=== PATIENT | male | born 1970 | race Caucasian/White ===

== ENCOUNTER 2018-08-28 22:25 | Observation (INO) | payer BC ==
[2018-08-28] MEDS ORDERED: Sodium Chloride 0.9% 10 ML Syringe FLUSH PRN (23:00)
[2018-08-28] MEDS ORDERED: Lactated Ringers 1,000 ML IV ONE (23:00)
[2018-08-28] MEDS ORDERED: Ondansetron 4 MG/2 ML SDV IV ONE (23:15)
--- NOTE | 2018-08-28 23:15 | EDM.PDOC ---
ED HPI GENERAL MEDICAL PROBLEM - General Chief Complaint: General Stated Complaint: PASSED OUT ON FLOOR [id number] Time Seen by Provider: 08/28/18 23:00 Source of Information: Reports: Patient, Family, RN, RN Notes Reviewed History Limitations: Reports: No Limitations - History of Present Illness INITIAL COMMENTS - FREE TEXT/NARRATIVE: Pt to ER with with c/o passing out at home today. Pt's states the patient cut his finger yesterday (cut most of the end off per ). Saw Dr. Chow in the clinic today and finger was bandaged. 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 Got home tonight and went to bed. States he felt hot and "itchy". Got out of bed and went into the bathroom. states he looked disoriented. states he passed out onto the floor, defacated on the floor while unconscious. Upon arrival patient states he feels weak and nauseated. Patient denies chest pains, recent illness, fever, chills, N/V. States he was started on Augmentin today in the clinic. Has taken 1 dose of the medication today. Onset: Today, Sudden - Related Data Allergies Allergy/AdvReac Type Severity Reaction Status Date / Time No Known Allergies Allergy Verified 08/28/18 22:51 Home Meds: Home Meds Amoxicillin/Potassium Clav [Augmentin 500-125 Tablet] 1 tab PO BID 08/28/18 [ History] Past Medical History - Past Health History Medical/Surgical History: Denies Medical/Surgical History ED ROS GENERAL - Review of Systems Review Of Systems: ROS reveals no pertinent complaints other than HPI. ED EXAM, GENERAL - Physical Exam Exam: See Below Exam Limited By: No Limitations General Appearance: Alert, WD/WN, Mild Distress Eye Exam: Bilateral Eye: EOMI, Normal Inspection Ears: Normal External Exam, Hearing Grossly Normal Nose: Normal Inspection Throat/Mouth: Normal Inspection, Normal Voice, No Airway Compromise Head: Atraumatic, Normocephalic Neck: Normal Inspection, Supple, Non-Tender, Full Range of Motion Respiratory/Chest: No Respiratory Distress, Lungs Clear, Normal Breath Sounds, No Accessory Muscle Use, Chest Non-Tender Cardiovascular: Normal Peripheral Pulses, Regular Rate, Rhythm, No Edema, No Gallop, No JVD, No Murmur, No Rub Peripheral Pulses: 2+: Radial (L), Radial (R) GI/Abdominal: Normal Bowel Sounds, Soft, Non-Tender, No Organomegaly, No Distention, No Abnormal Bruit, No Mass (Male) Exam: Deferred Rectal (Males) Exam: Deferred Back Exam: Normal Inspection, Full Range of Motion, NT Extremities: Normal Inspection, Normal Range of Motion, Non-Tender, Normal Capillary Refill, No Pedal Edema Neurological: Alert, Oriented, CN II-XII Intact, Normal Cognition, Normal Gait, Normal Reflexes, No Motor/Sensory Deficits Psychiatric: Normal Mood, Flat Affect Skin Exam: Warm, Dry, Intact, No Rash, Erythema (arms, legs) Lymphatic: No Adenopathy Course - Vital Signs Last Recorded V/S: Last Vital Signs Temp 97.5 F 08/28/18 23:33 Pulse 74 08/28/18 23:33 Resp 18 08/28/18 23:33 BP 97/59 L 08/28/18 23:33 Pulse Ox 97 08/28/18 23:33 - Orders/Labs/Meds Orders: Active Orders 24 hr Category Date Time Status EKG Documentation Completion [RC] STAT Care 08/28/18 23:00 Active Peripheral IV Care [RC] . DIRECTED Care 08/28/18 23:01 Active CULTURE BLOOD [BC] Stat Lab 08/28/18 00:22 Received CULTURE BLOOD [BC] Stat Lab 08/28/18 23:41 Received DRUG SCREEN URINE BIORAD [URCHEM] Stat Lab 08/28/18 23:00 Ordered UA RFX EMILY AND CULT IF INDIC [URIN] Stat Lab 08/28/18 23:00 Ordered Sodium Chloride 0.9% [Normal Saline] 1,000 ml Med 08/29/18 00:24 Active IV .BOLUS Sodium Chloride 0.9% [Saline Flush] Med 08/28/18 23:00 Active 10 ml FLUSH ASDIRECTED PRN Blood Culture x2 Reflex Set [OM.PC] Stat Oth 08/28/18 23:44 Ordered Peripheral IV Insertion Adult [OM.PC] Stat Oth 08/28/18 23:00 Ordered Medication Orders Sodium Chloride (Normal Saline) 1,000 mls @ 999 mls/hr IV .BOLUS ONE Stop: 08/29/18 01:24 Last Admin: 08/29/18 00:25 Dose: 999 mls/hr Sodium Chloride (Saline Flush) 10 ml FLUSH ASDIRECTED PRN PRN Reason: Keep Vein Open Last Admin: 08/28/18 23:46 Dose: 10 ml Labs: Laboratory Tests 08/28/18 08/28/18 08/28/18 Range/Units 23:12 23:12 23:44 WBC 16.8 H (5.0-10.0) 10^3/uL RBC 5.49 (4.6-6.2) 10^6/uL Hgb 17.1 (14.0-18.0) g/dL Hct 47.8 (40.0-54.0) % MCV 87.1 (80-100) fL MCH 31.1 (27.0-34.0) pg MCHC 35.8 H (33.0-35.0) g/dL Plt Count 271 (150-450) 10^3/uL Neut % (Auto) 65.6 (42.2-75.2) % Lymph % (Auto) 25.9 (20.5-50.1) % [place] % (Auto) 6.0 (2-8) % Eos % (Auto) 2.3 (1.0-3.0) % Baso % (Auto) 0.2 (0.0-1.0) % Sodium 136 (135-145) mmol/L Potassium 3.1 L (3.6-5.0) mmol/L Chloride 99 L (101-111) mmol/L Carbon Dioxide 18.0 L (21.0-31.0) mmol/L Anion Gap 22.1 BUN 15 (7-18) mg/dL Creatinine 1.4 H (0.6-1.3) mg/dL Est Cr Clr Drug Dosing 69.29 mL/min Estimated GFR (MDRD) 54 BUN/Creatinine Ratio 10.71 Glucose 121 H (74-105) mg/dL Lactic Acid 3.1 H (0.5-2.2) mmol/L Calcium 9.2 (8.4-10.2) mg/dl Total Bilirubin 0.7 (0.2-1.0) mg/dL AST 27 (10-42) IU/L ALT 27 (10-60) IU/L Alkaline Phosphatase 63 (42-121) IU/L Troponin I < 0.02 (0.00-0.02) ng/ml Total Protein 6.8 (6.7-8.2) g/dl Albumin 4.2 (3.2-5.5) g/dl Globulin 2.6 Albumin/Globulin Ratio 1.62 Ethyl Alcohol 177 mg/dL Meds: Medications Generic Name Dose Route Start Last Admin Trade Name Freq PRN Reason Stop Dose Admin Sodium Chloride 1,000 mls @ 999 mls/hr 08/29/18 00:24 08/29/18 00:25 Normal Saline IV 08/29/18 01:24 999 mls/hr .BOLUS ONE Administration Sodium Chloride 10 ml 08/28/18 23:00 08/28/18 23:46 Saline Flush FLUSH 10 ml ASDIRECTED PRN Administration Keep Vein Open Discontinued Medications Generic Name Dose Route Start Last Admin Trade Name Freq PRN Reason Stop Dose Admin Lactated Ringer's 1,000 mls @ 999 mls/hr 08/28/18 23:00 08/28/18 23:23 Ringers, Lactated IV 08/29/18 00:00 999 mls/hr .BOLUS ONE Administration Ondansetron HCl 4 mg 08/28/18 23:15 08/28/18 23:23 Zofran IV 08/28/18 23:16 4 mg ONETIME ONE Administration - Radiology Interpretation Free Text/Narrative:: Chest xray: FINDINGS: Lungs: Unremarkable. No consolidation. Pleural space: Unremarkable. No pleural effusion. No pneumothorax. Heart/Mediastinum: Unremarkable. No cardiomegaly. Bones/joints: Unremarkable. IMPRESSION: No acute findings. Thank you for allowing us to participate in the care of your patient. Dictated and Authenticated by: Vasu Gan MD 08/28/2018 11:36 PM Central Time ([place] & [place]) See rad report - Re-Assessments/Exams Free Text/Narrative Re-Assessment/Exam: 08/29/18 01:15 Discussed patient case with Dr. Pantoja who agreed to accept the patient for observation. Departure - Departure Time of Disposition: 01:16 Disposition: Refer to Observation Condition: Fair Clinical Impression: Hypokalemia, Elevated lactic acid level Episode of syncope Qualifiers: Syncope type: unspecified Qualified Code(s): R55 - Syncope and collapse Leukocytosis Qualifiers: Leukocytosis type: unspecified Qualified Code(s): D72.829 - Elevated white blood cell count, unspecified - Discharge Information *PRESCRIPTION DRUG MONITORING PROGRAM REVIEWED*: No *COPY OF PRESCRIPTION DRUG MONITORING REPORT IN PATIENT ALEXA: No - My Orders Last 24 Hours: My Active Orders 08/28/18 00:22 CULTURE BLOOD [BC] Stat 08/28/18 23:00 EKG Documentation Completion [RC] STAT DRUG SCREEN URINE BIORAD [URCHEM] Stat UA RFX EMILY AND CULT IF INDIC [URIN] Stat Sodium Chloride 0.9% [Saline Flush] 10 ml FLUSH ASDIRECTED PRN Peripheral IV Insertion Adult [OM.PC] Stat 08/28/18 23:01 Peripheral IV Care [RC] . DIRECTED 08/28/18 23:41 CULTURE BLOOD [BC] Stat 08/28/18 23:44 Blood Culture x2 Reflex Set [OM.PC] Stat 08/29/18 00:24 Sodium Chloride 0.9% [Normal Saline] 1,000 ml IV .BOLUS - Assessment/Plan Last 24 Hours: My Active Orders 08/28/18 00:22 CULTURE BLOOD [BC] Stat 08/28/18 23:00 EKG Documentation Completion [RC] STAT DRUG SCREEN URINE BIORAD [URCHEM] Stat UA RFX EMILY AND CULT IF INDIC [URIN] Stat Sodium Chloride 0.9% [Saline Flush] 10 ml FLUSH ASDIRECTED PRN Peripheral IV Insertion Adult [OM.PC] Stat 08/28/18 23:01 Peripheral IV Care [RC] . DIRECTED 08/28/18 23:41 CULTURE BLOOD [BC] Stat 08/28/18 23:44 Blood Culture x2 Reflex Set [OM.PC] Stat 08/29/18 00:24 Sodium Chloride 0.9% [Normal Saline] 1,000 ml IV .BOLUS
[2018-08-28 23:38] LABS: ANION GAP 22.1; CHLORIDE,CL 99 mmol/L (101-111); SODIUM,NA 136 mmol/L (135-145)
[2018-08-29] MEDS ORDERED: Sodium Chloride 0.9% 1,000 ML IV ONE (00:24)
[2018-08-29] MEDS ORDERED: Morphine 2 MG/ML Syringe IVPUSH PRN (01:28)
[2018-08-29] MEDS ORDERED: Acetaminophen 325 MG Tab PO PRN (01:29)
[2018-08-29] MEDS ORDERED: LORazepam 1 MG Tab PO PRN (01:31)
[2018-08-29] MEDS: Sodium Chloride 0.9% 1,000 ML IV SCH ×3 (01:52→16:51)
[2018-08-29] MEDS: ceFAZolin 2 GM in Premix Bag 1 BAG IV SCH ×3 (05:45→21:39)
[2018-08-29] MEDS ORDERED: Ondansetron 4 MG/2 ML SDV IV PRN (06:18)
[2018-08-29] MEDS: Enoxaparin 40 MG/0.4 ML Syringe SUBCUT SCH (08:33)
[2018-08-29] MEDS ORDERED: diphenhydrAMINE 12.5 MG/5 ML Liquid 5 ML UD Cup PO PRN (09:43)
[2018-08-29] MEDS ORDERED: diphenhydrAMINE 25 MG Tab PO PRN (10:38)
--- NOTE | 2018-08-29 10:48 | PCM.HP ---
H&P History of Present Illness - General Date of Service: 08/29/18 Admit Problem/Dx: Admission Diagnosis/Problem Admission Diagnosis/Problem Syncope and collapse Source of Information: Patient - History of Present Illness Initial Comments - Free Text/Narative: The patient is a 48-year-old man with medical history of alcohol use disorder. He is also a tobacco smoker. The patient got up to go to the bathroom felt woozy and passed out. His significant other weakness the incident. He was out a few seconds but subsequently responded to calls. Patient was a prescription brought to the emergency room. Was found to have elevated serum lactate and high white cell count. Was hypotensive. Patient denied having nausea vomiting initially. Subsequently he started vomiting in the emergency room. Has vomited multiple times now. Denies having abdominal pain. Denies headache or blurry vision. Denies dysuria frequency or micturition. Has not had any documented fever. Of note is that the patient recently sustained a Studies left middle finger. Was seen in the clinic and started on Augmentin. With that medication patient began to have itching. Did not have any documented fever. - Related Data Allergies/Adverse Reactions: Allergies Allergy/AdvReac Type Severity Reaction Status Date / Time No Known Allergies Allergy Verified 08/28/18 22:51 Home Medications: Home Meds Amoxicillin/Potassium Clav [Augmentin 500-125 Tablet] 1 tab PO BID 08/28/18 [ History] Past Medical History - Past Health History Medical/Surgical History: Denies Medical/Surgical History Cardiovascular History: Reports: Syncope Musculoskeletal History: Reports: Back Pain, Chronic Neurological History: Reports: Brain Injury, Migraines Other Neuro History: head injury and migraines at 6years old Psychiatric History: Reports: Addiction, Anxiety Other Psychiatric History: has taken lexapro in past Immunologic History: Reports: None Oncologic (Cancer) History: Reports: None Dermatologic History: Reports: None - Infectious Disease History Infectious Disease History: Reports: Chicken Pox - Past Surgical History Head Surgeries/Procedures: Reports: None Social & Family History - Family History Family Medical History: Noncontributory - Tobacco Use Smoking Status *Q: Current Every Day Smoker Years of Tobacco use: 40 Packs/Tins Daily: 1 Used Tobacco, but Quit: No Second Hand Smoke Exposure: Yes - Caffeine Use Caffeine Use: Reports: Coffee, Soda - Alcohol Use Days Per Week of Alcohol Use: 4 Number of Drinks Per Day: 7 Total Drinks Per Week: 28 - Recreational Drug Use Recreational Drug Use: No H&P Review of Systems - Review of Systems: Review Of Systems: See Below General: Reports: Malaise HEENT: Reports: No Symptoms Pulmonary: Reports: No Symptoms Cardiovascular: Reports: No Symptoms Gastrointestinal: Reports: Nausea, Vomiting Genitourinary: Reports: No Symptoms Musculoskeletal: Reports: No Symptoms Skin: Reports: No Symptoms Exam - Exam Exam: See Below - Vital Signs Vital Signs: Last Vital Signs Temp 37.7 C 08/29/18 07:50 Pulse 97 08/29/18 07:50 Resp 20 08/29/18 07:50 BP 114/67 08/29/18 07:50 Pulse Ox 99 08/29/18 07:50 Weight: 90.083 kg - Exam General: Alert, Oriented, 4 HEENT: PERRLA, Hearing Intact, Mucosa Moist & [place], Nares Patent, Normal Nasal Septum, Posterior Pharynx Clear, Conjunctiva Clear, EOMI, EACs Clear, TMs Clear Neck: Supple, Trachea Midline, 2 Lungs: Clear to Auscultation, Normal Respiratory Effort Cardiovascular: Regular Rate, Regular Rhythm GI/Abdominal Exam: Normal Bowel Sounds, Soft, Non-Tender, No Organomegaly, No Distention, No Abnormal Bruit, No Mass, Pelvis Stable Extremities: Normal Inspection, Normal Range of Motion, Non-Tender, No Pedal Edema, Normal Capillary Refill - Patient Data Lab Results Last 24 hrs: Laboratory Results - last 24 hr 08/28/18 08/28/18 08/28/18 Range/Units 23:12 23:12 23:44 WBC 16.8 H (5.0-10.0) 10^3/uL RBC 5.49 (4.6-6.2) 10^6/uL Hgb 17.1 (14.0-18.0) g/dL Hct 47.8 (40.0-54.0) % MCV 87.1 (80-100) fL MCH 31.1 (27.0-34.0) pg MCHC 35.8 H (33.0-35.0) g/dL Plt Count 271 (150-450) 10^3/uL Neut % (Auto) 65.6 (42.2-75.2) % Lymph % (Auto) 25.9 (20.5-50.1) % [place] % (Auto) 6.0 (2-8) % Eos % (Auto) 2.3 (1.0-3.0) % Baso % (Auto) 0.2 (0.0-1.0) % Sodium 136 (135-145) mmol/L Potassium 3.1 L (3.6-5.0) mmol/L Chloride 99 L (101-111) mmol/L Carbon Dioxide 18.0 L (21.0-31.0) mmol/L Anion Gap 22.1 BUN 15 (7-18) mg/dL Creatinine 1.4 H (0.6-1.3) mg/dL Est Cr Clr Drug Dosing 69.29 mL/min Estimated GFR (MDRD) 54 BUN/Creatinine Ratio 10.71 Glucose 121 H (74-105) mg/dL Lactic Acid 3.1 H (0.5-2.2) mmol/L Calcium 9.2 (8.4-10.2) mg/dl Total Bilirubin 0.7 (0.2-1.0) mg/dL AST 27 (10-42) IU/L ALT 27 (10-60) IU/L Alkaline Phosphatase 63 (42-121) IU/L Troponin I < 0.02 (0.00-0.02) ng/ml Total Protein 6.8 (6.7-8.2) g/dl Albumin 4.2 (3.2-5.5) g/dl Globulin 2.6 Albumin/Globulin Ratio 1.62 Urine Color (YELLOW) Urine Appearance (CLEAR) Urine pH (5.0-9.0) Ur Specific [place] (1.005-1.030) Urine Protein (NEGATIVE) Urine Glucose (UA) (NEGATIVE) Urine Ketones (NEGATIVE) Urine Occult Blood (NEGATIVE) Urine Nitrite (NEGATIVE) Urine Bilirubin (NEGATIVE) Urine Urobilinogen (0.2-1.0) mg/dL Ur Leukocyte Esterase (NEGATIVE) Urine RBC /HPF Urine WBC (0-5/HPF) /HPF Ur Epithelial Cells /HPF Urine Bacteria (0-FEW/HPF) /HPF Urine Opiates Screen (NEGATIVE) Ur Oxycodone Screen (NEGATIVE) Urine Methadone Screen (NEGATIVE) Ur Barbiturates Screen (NEGATIVE) U Tricyclic Antidepress (NEGATIVE) Ur Phencyclidine Scrn (NEGATIVE) Ur Amphetamine Screen (NEGATIVE) U Methamphetamines Scrn (NEGATIVE) Urine MDMA Screen (NEGATIVE) U Benzodiazepines Scrn (NEGATIVE) Urine Cocaine Screen (NEGATIVE) U Marijuana (THC) Screen (NEGATIVE) Ethyl Alcohol 177 mg/dL 08/29/18 08/29/18 08/29/18 Range/Units 03:25 03:25 04:38 WBC (5.0-10.0) 10^3/uL RBC (4.6-6.2) 10^6/uL Hgb (14.0-18.0) g/dL Hct (40.0-54.0) % MCV (80-100) fL MCH (27.0-34.0) pg MCHC (33.0-35.0) g/dL Plt Count (150-450) 10^3/uL Neut % (Auto) (42.2-75.2) % Lymph % (Auto) (20.5-50.1) % [place] % (Auto) (2-8) % Eos % (Auto) (1.0-3.0) % Baso % (Auto) (0.0-1.0) % Sodium (135-145) mmol/L Potassium (3.6-5.0) mmol/L Chloride (101-111) mmol/L Carbon Dioxide (21.0-31.0) mmol/L Anion Gap BUN (7-18) mg/dL Creatinine (0.6-1.3) mg/dL Est Cr Clr Drug Dosing mL/min Estimated GFR (MDRD) BUN/Creatinine Ratio Glucose (74-105) mg/dL Lactic Acid 2.3 H (0.5-2.2) mmol/L Calcium (8.4-10.2) mg/dl Total Bilirubin (0.2-1.0) mg/dL AST (10-42) IU/L ALT (10-60) IU/L Alkaline Phosphatase (42-121) IU/L Troponin I (0.00-0.02) ng/ml Total Protein (6.7-8.2) g/dl Albumin (3.2-5.5) g/dl Globulin Albumin/Globulin Ratio Urine Color Yellow (YELLOW) Urine Appearance Clear (CLEAR) Urine pH 5.0 (5.0-9.0) Ur Specific [place] 1.025 (1.005-1.030) Urine Protein Trace H (NEGATIVE) Urine Glucose (UA) Negative (NEGATIVE) Urine Ketones Trace H (NEGATIVE) Urine Occult Blood Trace-intact H (NEGATIVE) Urine Nitrite Negative (NEGATIVE) Urine Bilirubin Negative (NEGATIVE) Urine Urobilinogen 0.2 (0.2-1.0) mg/dL Ur Leukocyte Esterase Negative (NEGATIVE) Urine RBC 0-5 /HPF Urine WBC 0-5 (0-5/HPF) /HPF Ur Epithelial Cells Few /HPF Urine Bacteria Few (0-FEW/HPF) /HPF Urine Opiates Screen Negative (NEGATIVE) Ur Oxycodone Screen Negative (NEGATIVE) Urine Methadone Screen Negative (NEGATIVE) Ur Barbiturates Screen Negative (NEGATIVE) U Tricyclic Antidepress Negative (NEGATIVE) Ur Phencyclidine Scrn Negative (NEGATIVE) Ur Amphetamine Screen Negative (NEGATIVE) U Methamphetamines Scrn Negative (NEGATIVE) Urine MDMA Screen Negative (NEGATIVE) U Benzodiazepines Scrn Negative (NEGATIVE) Urine Cocaine Screen Negative (NEGATIVE) U Marijuana (THC) Screen Negative (NEGATIVE) Ethyl Alcohol mg/dL 08/29/18 Range/Units 04:38 WBC (5.0-10.0) 10^3/uL RBC (4.6-6.2) 10^6/uL Hgb (14.0-18.0) g/dL Hct (40.0-54.0) % MCV (80-100) fL MCH (27.0-34.0) pg MCHC (33.0-35.0) g/dL Plt Count (150-450) 10^3/uL Neut % (Auto) (42.2-75.2) % Lymph % (Auto) (20.5-50.1) % [place] % (Auto) (2-8) % Eos % (Auto) (1.0-3.0) % Baso % (Auto) (0.0-1.0) % Sodium (135-145) mmol/L Potassium (3.6-5.0) mmol/L Chloride (101-111) mmol/L Carbon Dioxide (21.0-31.0) mmol/L Anion Gap BUN (7-18) mg/dL Creatinine (0.6-1.3) mg/dL Est Cr Clr Drug Dosing mL/min Estimated GFR (MDRD) BUN/Creatinine Ratio Glucose (74-105) mg/dL Lactic Acid (0.5-2.2) mmol/L Calcium (8.4-10.2) mg/dl Total Bilirubin (0.2-1.0) mg/dL AST (10-42) IU/L ALT (10-60) IU/L Alkaline Phosphatase (42-121) IU/L Troponin I < 0.02 (0.00-0.02) ng/ml Total Protein (6.7-8.2) g/dl Albumin (3.2-5.5) g/dl Globulin Albumin/Globulin Ratio Urine Color (YELLOW) Urine Appearance (CLEAR) Urine pH (5.0-9.0) Ur Specific [place] (1.005-1.030) Urine Protein (NEGATIVE) Urine Glucose (UA) (NEGATIVE) Urine Ketones (NEGATIVE) Urine Occult Blood (NEGATIVE) Urine Nitrite (NEGATIVE) Urine Bilirubin (NEGATIVE) Urine Urobilinogen (0.2-1.0) mg/dL Ur Leukocyte Esterase (NEGATIVE) Urine RBC /HPF Urine WBC (0-5/HPF) /HPF Ur Epithelial Cells /HPF Urine Bacteria (0-FEW/HPF) /HPF Urine Opiates Screen (NEGATIVE) Ur Oxycodone Screen (NEGATIVE) Urine Methadone Screen (NEGATIVE) Ur Barbiturates Screen (NEGATIVE) U Tricyclic Antidepress (NEGATIVE) Ur Phencyclidine Scrn (NEGATIVE) Ur Amphetamine Screen (NEGATIVE) U Methamphetamines Scrn (NEGATIVE) Urine MDMA Screen (NEGATIVE) U Benzodiazepines Scrn (NEGATIVE) Urine Cocaine Screen (NEGATIVE) U Marijuana (THC) Screen (NEGATIVE) Ethyl Alcohol mg/dL Result Diagrams: 08/28/18 23:12 08/28/18 23:12 Problem List Initiated/Reviewed/Updated: Yes Orders Last 24hrs: Active Orders 24 hr Category Date Time Status Patient Status [ADT] Routine ADT 08/29/18 01:23 Active Oxygen Therapy [RC] PRN Care 08/29/18 01:23 Active Up With Assistance [RC] ASDIRECTED Care 08/29/18 01:23 Active VTE/DVT Education [RC] PER UNIT ROUTINE Care 08/29/18 01:23 Active Vital Signs [RC] Q4H Care 08/29/18 01:23 Active Regular Diet [DIET] Diet 08/29/18 Breakfast Active Head wo Cont [CT] Routine Exams 08/29/18 09:43 Taken CBC W/O DIFF,HEMOGRAM [HEME] Routine Lab 08/30/18 09:59 Ordered CULTURE BLOOD [BC] Stat Lab 08/28/18 23:41 Received Acetaminophen [Tylenol] Med 08/29/18 01:29 Active 650 mg PO Q4H PRN Enoxaparin [Lovenox] Med 08/29/18 09:00 Active 40 mg SUBCUT DAILY LORazepam [Ativan] Med 08/29/18 01:31 Active 1 mg PO Q4H PRN Morphine Med 08/29/18 01:28 Active 2 mg IVPUSH Q4H PRN Ondansetron [Zofran] Med 08/29/18 06:18 Active 4 mg IV Q6H PRN Sodium Chloride 0.9% [Normal Saline] 1,000 ml Med 08/29/18 01:30 Active IV ASDIRECTED Sodium Chloride 0.9% [Saline Flush] Med 08/28/18 23:00 Active 10 ml FLUSH ASDIRECTED PRN ceFAZolin [Ancef] 2 gm Med 08/29/18 06:00 Active Premix Bag 1 bag IV Q8HR diphenhydrAMINE [Benadryl] Med 08/29/18 10:38 Ordered 25 mg PO QID PRN Blood Culture x2 Reflex Set [OM.PC] Stat Oth 08/28/18 23:44 Ordered Peripheral IV Insertion Adult [OM.PC] Stat Oth 08/28/18 23:00 Ordered Resuscitation Status Routine Resus Stat 08/29/18 01:23 Ordered Medication Orders Acetaminophen (Tylenol) 650 mg PO Q4H PRN PRN Reason: Pain Diphenhydramine HCl (Benadryl) 25 mg PO QID PRN PRN Reason: Itching Enoxaparin Sodium (Lovenox) 40 mg SUBCUT DAILY [facility] Last Admin: 08/29/18 08:33 Dose: 40 mg Sodium Chloride (Normal Saline) 1,000 mls @ 150 mls/hr IV ASDIRECTED [facility] Last Admin: 08/29/18 09:16 Dose: 150 mls/hr Infusion: 08/29/18 08:33 Dose: 150 mls/hr Admin: 08/29/18 01:52 Dose: 150 mls/hr Cefazolin Sodium/Dextrose 2 gm (/ Premix) 50 mls @ 100 mls/hr IV Q8HR [facility] Last Infusion: 08/29/18 06:31 Dose: 100 mls/hr Admin: 08/29/18 05:45 Dose: 100 mls/hr Lorazepam (Ativan) 1 mg PO Q4H PRN; Protocol PRN Reason: Withdrawal Symptoms Morphine Sulfate (Morphine) 2 mg IVPUSH Q4H PRN PRN Reason: Pain Ondansetron HCl (Zofran) 4 mg IV Q6H PRN PRN Reason: Nausea/Vomiting Last Admin: 08/29/18 08:30 Dose: 4 mg Sodium Chloride (Saline Flush) 10 ml FLUSH ASDIRECTED PRN PRN Reason: Keep Vein Open Last Admin: 08/28/18 23:46 Dose: 10 ml Assessment/Plan Comment:: #. Possible sepsis Patient was noted to have elevated serum lactate. Was hypotensive and has elevated white cell count. He sustained a cut to his left middle finger a few days ago. Was started on oral antibiotics Augmentin. He could have been septic. However has not had any fever. Patient also describes associated itching since commencement of the Augmentin. He could have allergic reaction to this medication monitoring fasting with systemic inflammatory response syndrome #. Alcohol use disorder Patient drinks about 8 pack of beer for 5 times a week Denies withdrawal symptoms #. Nausea and vomiting This is possibly due to alcoholic gastritis #. Syncope Patient was hypotensive Could have had orthostatic hypotension Denied having chest pain. Also denies having shortness of breath #. Cellulitis of the left hand. Patient accidentally caught his left middle finger a few days ago. Was started on oral Augmentin Plan: Admit patient to medical floor Intravenous fluids Start intravenous cefazolin Recheck serum lactate Intravenous Zofran Intravenous Protonix 40 mg every [address] scan of the head to rule out intracranial injury.
[2018-08-29] MEDS: Pantoprazole 40 MG Vial IVPUSH SCH (11:17)
[2018-08-30] MEDS: Sodium Chloride 0.9% 1,000 ML IV SCH ×2 (00:30→07:21)
[2018-08-30] MEDS: ceFAZolin 2 GM in Premix Bag 1 BAG IV SCH ×3 (05:45→22:05)
[2018-08-30] MEDS: Pantoprazole 40 MG Vial IVPUSH SCH (09:11)
[2018-08-30] MEDS: Enoxaparin 40 MG/0.4 ML Syringe SUBCUT SCH (09:17)
[2018-08-30 09:25] LABS: ANION GAP 12.2; CHLORIDE,CL 108 mmol/L (101-111); SODIUM,NA 137 mmol/L (135-145)
--- NOTE | 2018-08-30 12:01 | PN ---
DATE: 08/30/2018 SUBJECTIVE: Mr. Marcus Yates is a 48-year-old male with a medical history significant for chronic alcohol use, tobacco use, admitted with syncopal episode and collapse and noted to have possible sepsis with underlying cellulitis of the left index finger. For the last 24 hours, the patient was continued on IV fluids. He denies any complaints of dizziness. No chest pain. No shortness of breath. No abdominal pain. No nausea. No vomiting. No diarrhea. REVIEW OF SYSTEMS: Cardiovascular, respiratory, gastrointestinal, neurology, constitutional were all evaluated. PHYSICAL EXAMINATION: Vital Signs: Temperature of 99.1, T-max of 100.1, pulse of 68, blood pressure of 108/60, respiratory rate of 16, and saturating at 98% on room air. General Appearance: The patient is well oriented to time, place, and person. Follows commands spontaneously. Cardiovascular System: S1, S2 heard with normal intensity. No gallops. Respiratory System: Clear to auscultation bilaterally. No wheeze. No crepitations. Abdomen: Soft. Bowel sounds positive. Nontender. No rigidity. Extremities: No edema in bilateral lower extremities. Neurology: No gross focal neurological deficit. MEDICATIONS: Reviewed. Continue with Tylenol 650 every 4 hours as needed for pain, Lovenox 40 mg subcutaneous daily, morphine as needed for pain control, Protonix 40 mg subcutaneous daily, cefazolin IV q.8 hourly. LABORATORY DATA: Labs reviewed. WBC 7.7, hemoglobin 11.9, hematocrit 35.3, platelet count 158. Lactic acid 1.3. ASSESSMENT: 1. Syncope and collapse. 2. Possible sepsis. 3. Lactic acidosis. 4. Possible cellulitis involving the left index finger. PLAN: 1. Cellulitis. The patient was noted to have recent cut of his left index finger. This was unattended for at least 24 hours prior to coming to the hospital leading to possible sepsis. He is currently on IV antibiotics. Continue the same. 2. Sepsis. The patient had syncopal episode and collapse at his home, possibly with low blood pressure. He has been on IV fluids. Blood pressure seems to be well controlled, but still on the lower side. Avoid any hypotensive episodes. We will closely follow the patient. 3. Lactic acidosis. This is resolved. He has a lactic acid of 3.1 at the time of admission, which is improved to 1.3 at this time. 4. Hypokalemia. The patient was noted to have potassium of 3.1 at the time of admission. We will recheck a BMP today and replace electrolytes as needed. 5. DVT prophylaxis. Continue with Lovenox for DVT prophylaxis. [facility] /[id number]
[2018-08-30] MEDS ORDERED: Sodium Chloride 0.9% 10 ML Syringe FLUSH PRN (12:22)
[2018-08-30] MEDS ORDERED: Ondansetron 4 MG/2 ML SDV IV PRN (15:45)
[2018-08-30] MEDS ORDERED: Acetaminophen 325 MG Tab PO PRN (15:45)
[2018-08-30] MEDS ORDERED: LORazepam 1 MG Tab PO PRN (15:45)
[2018-08-30] MEDS ORDERED: Morphine 2 MG/ML Syringe IVPUSH PRN (15:45)
[2018-08-31] MEDS: ceFAZolin 2 GM in Premix Bag 1 BAG IV SCH (05:49)
[2018-08-31] MEDS ORDERED: Pantoprazole 40 MG Tab.CR PO SCH (06:00)
[2018-08-31 06:29] LABS: ANION GAP 13.2; CHLORIDE,CL 108 mmol/L (101-111); SODIUM,NA 139 mmol/L (135-145)
[2018-08-31] MEDS: Enoxaparin 40 MG/0.4 ML Syringe SUBCUT SCH (10:28)
[2018-08-31 12:34] VITALS: BP 159/86
--- NOTE | 2018-09-01 04:27 | DISCH ---
ADMITTING DIAGNOSES: 1. Cellulitis of the left index finger. 2. Sepsis. 3. Syncope and collapse. 4. Nausea and vomiting. DISCHARGE DIAGNOSES: 1. Cellulitis of the left hand improved with IV antibiotics, switched to oral Keflex at the time of discharge. 2. Syncope and collapse secondary to sepsis, resolved. 3. Normal sinus rhythm on the telemetry unit. 4. Nausea and vomiting, resolved. HISTORY OF PRESENTING ILLNESS: Mr. Marcus Yates is a 48-year-old male with a medical history significant for alcoholic disorder and tobacco user, who presented to the hospital after having a fall in the bathroom and was noted to have cellulitis involving the left index finger. He had an accidental wound at his workplace, very slightly sliced his lateral part of the index finger with no obvious abscess noted at this time. The patient was tried with oral antibiotic with Augmentin, but the patient started developing some itchiness with Augmentin and had this spell. He was treated with IV cefazolin on this admission. He responded well to the treatment. He tolerated the antibiotic very well. His labs were improved at the time of discharge. He is discharged home in stable condition. His sepsis got resolved on this admission. He is advised to follow with his primary care physician in next 1 week of time and he is advised to follow with the orthopedic physician if the wound does not heal well. He is prescribed the oral Keflex and also oral pain medication with oxycodone. He is discharged home in stable condition. DISCHARGE MEDICATIONS: Include: 1. Keflex 500 mg every 8 hours. 2. Percocet 5/325 mg 3 times a day as needed for pain. PHYSICAL EXAMINATION: On the day of discharge: Vital Signs: Temperature of 98.5, pulse of 59, blood pressure 133/74, respiratory rate of 18, and saturating at 99%. General Appearance: The patient is well oriented to time, place, and person. Follows commands spontaneously. Cardiovascular System: S1 and S2 heard with normal intensity. No gallops. Respiratory System: Clear to auscultation bilaterally. No wheezes. No crepitations. Abdomen: Soft. Bowel sounds positive. Nontender. No rigidity. Extremities: No edema in bilateral lower extremities. Neurologic: No gross focal neurological deficit. Skin: A small wound noted on the lateral part of the left index finger with broken nail and also exposure of the deep tissue. No exposure of the bone noted at this time. No obvious abscess or secretions noted at this time. As per the patient, the wound is healing well. CONDITION ON ADMISSION: Poor. CONDITION ON DISCHARGE: Stable. DISPOSITION: Discharged to home. DIET: Regular diet. ACTIVITY: As tolerated. FOLLOWUP: Follow with primary care physician in next 1 week of time. TIME SPENT: I spent over 35 minutes of time in evaluating and treating this patient, and making discharge plans. [facility] /[phone]
== END 2018-08-31 12:32 | disposition home or self-care (01) ==
LOC: DL.ED 22:25 → DL.MS 08-29 01:22 → UNDOADMOB 08-29 01:22 → DL.MS 08-29 01:23
PROVIDERS: ADMIT Hospitalist; ATTEND Hospitalist
DX: A41.9 Sepsis, unspecified organism (principal); L03.012 Cellulitis of left finger; E87.6 Hypokalemia; F17.200 Nicotine dependence, unspecified, uncomplicated
CPT/HCPCS: 36415; 70450; 71045; 80048; 80053; 80305; 81001; 83605; 84484; 85025; 85027; 87040; 93005; 96361; 96365; 96366; 96372; 96375; 96376; 99285; A9270; C9113; G0378; G0480; J0690; J1650; J2405; J7030; J7120; 96374

== ENCOUNTER 2018-10-16 10:32 | Emergency (ER) | payer BC ==
[2018-10-16] MEDS ORDERED: methylPREDNISolone Sodium Succinate 125 MG/2 ML SDV IVPUSH ONE (10:39)
[2018-10-16] MEDS ORDERED: diphenhydrAMINE 50 MG/ML SDV IVPUSH ONE (10:39)
[2018-10-16] MEDS ORDERED: Sodium Chloride 0.9% 10 ML Syringe FLUSH PRN (10:39)
[2018-10-16] MEDS ORDERED: Sodium Chloride 0.9% 1,000 ML IV ONE (10:39)
[2018-10-16] MEDS ORDERED: methylPREDNISolone Sodium Succinate 125 MG/2 ML SDV ONE (10:39)
[2018-10-16] MEDS ORDERED: LORazepam 2 MG/ML Syringe IVPUSH ONE (10:40)
[2018-10-16] MEDS ORDERED: Ondansetron 4 MG/2 ML SDV IV ONE (10:42)
[2018-10-16] MEDS ORDERED: EPINEPHrine 1 MG/ML SDV IM ONE (10:46)
[2018-10-16 10:54] VITALS: BP 132/70
[2018-10-16] MEDS ORDERED: diphenhydrAMINE 50 MG/ML SDV ONE (10:59)
--- NOTE | 2018-10-16 11:07 | EDM.PDOC ---
<Gail Rodrigues - Last Filed: 10/16/18 12:18> ED HPI GENERAL MEDICAL PROBLEM - General Chief Complaint: Allergic Reaction Stated Complaint: ALLERGIC REATION Time Seen by Provider: 10/16/18 10:40 Source of Information: Reports: Patient, Family History Limitations: Reports: No Limitations - History of Present Illness INITIAL COMMENTS - FREE TEXT/NARRATIVE: Patient presents to ER with CC of "allergic reaction". Patient states that he was started on Augmentin for a sinus infection and has taken x1 dose. Patient developed shortness of breath, nausea, shaking, and redness generalized throughout his body. Patient has no documented allergies, however according to chart review he did experience a previous "itching" reaction to Augmentin in August. Patient is alert & orientated x3, able to converse appropriately, oxygen saturations >98% on room air. Onset: Today - Related Data Allergies Allergy/AdvReac Type Severity Reaction Status Date / Time amoxicillin Allergy Hives Verified 10/16/18 12:11 clavulanic acid Allergy Hives Verified 10/16/18 12:11 [From Augmentin] Home Meds: Home Meds Amoxicillin/Potassium Clav [Amox-Clav 875-125 mg Tablet] 1 tab PO BID 10/16/18 [ History] methylPREDNISolone [Medrol] 1 dose PO ASDIRECTED 10/16/18 [History] Past Medical History - Past Health History Medical/Surgical History: Denies Medical/Surgical History Cardiovascular History: Reports: Syncope Musculoskeletal History: Reports: Back Pain, Chronic Neurological History: Reports: Brain Injury, Migraines Other Neuro History: head injury and migraines at 6years old Psychiatric History: Reports: Addiction, Anxiety Other Psychiatric History: has taken lexapro in past Immunologic History: Reports: None Oncologic (Cancer) History: Reports: None Dermatologic History: Reports: None - Infectious Disease History Infectious Disease History: Reports: Chicken Pox - Past Surgical History Head Surgeries/Procedures: Reports: None Social & Family History - Family History Family Medical History: Noncontributory - Tobacco Use Smoking Status *Q: Current Every Day Smoker Years of Tobacco use: 20 Packs/Tins Daily: 1 - Caffeine Use Caffeine Use: Reports: Coffee, Soda - Recreational Drug Use Recreational Drug Use: No ED ROS ALLERGIC REACTION - Review of Systems Review Of Systems: ROS reveals no pertinent complaints other than HPI. ED EXAM GENERAL NO PERIP PULSE - Physical Exam Exam: See Below Exam Limited By: No Limitations General Appearance: Alert, Anxious Ears: Normal External Exam, Normal Canal, Hearing Grossly Normal, Normal TMs Throat/Mouth: Normal Inspection, Normal Lips, Normal Teeth, Normal Gums, Normal Oropharynx, Normal Voice, No Airway Compromise Neck: Normal Inspection, Supple, Non-Tender, Full Range of Motion Respiratory/Chest: No Respiratory Distress, Lungs Clear, Normal Breath Sounds, No Accessory Muscle Use, Chest Non-Tender, Other (tachypneic) Cardiovascular: Normal Peripheral Pulses, Regular Rate, Rhythm, No Edema, No Gallop, No JVD, No Murmur, No Rub GI/Abdominal: Normal Bowel Sounds, Soft, Non-Tender, No Distention, No Abnormal Bruit, No Mass Extremities: Normal Inspection, Normal Range of Motion, Non-Tender, No Pedal Edema, Normal Capillary Refill, Redness (generalized redness) Neurological: Alert, Oriented, CN II-XII Intact, Normal Cognition, Normal Gait, No Motor/Sensory Deficits Psychiatric: Anxious Skin Exam: Warm, Dry, Intact, Erythema EKG INTERPRETATION EKG Date: 10/16/18 Time: 10:54 Rhythm: NSR Rate (Beats/Min): 91 [place]: Normal P-Wave: Present QRS: Normal ST-T: Normal QT: Normal EKG Interpretation Comments: Normal Sinus Rhythm Course - Vital Signs Last Recorded V/S: Last Vital Signs Temp 97.7 F 10/16/18 10:35 Pulse 130 H 10/16/18 10:35 Resp 42 H 10/16/18 10:35 BP 132/70 10/16/18 10:35 Pulse Ox 100 10/16/18 10:35 - Orders/Labs/Meds Labs: Laboratory Tests 10/16/18 10/16/18 10/16/18 Range/Units 10:54 10:54 10:54 WBC 8.1 (5.0-10.0) 10^3/uL RBC 5.21 (4.6-6.2) 10^6/uL Hgb 16.2 D (14.0-18.0) g/dL Hct 46.2 (40.0-54.0) % MCV 88.7 D (80-100) fL MCH 31.1 (27.0-34.0) pg MCHC 35.1 H (33.0-35.0) g/dL Plt Count 264 D (150-450) 10^3/uL Neut % (Auto) 38.4 L (42.2-75.2) % Lymph % (Auto) 51.7 H (20.5-50.1) % [place] % (Auto) 8.0 (2-8) % Eos % (Auto) 1.7 (1.0-3.0) % Baso % (Auto) 0.2 (0.0-1.0) % Sodium 140 (135-145) mmol/L Potassium 3.7 (3.6-5.0) mmol/L Chloride 108 (101-111) mmol/L Carbon Dioxide 18.0 L (21.0-31.0) mmol/L Anion Gap 17.7 BUN 16 (7-18) mg/dL Creatinine 1.0 (0.6-1.3) mg/dL Est Cr Clr Drug Dosing 97.00 mL/min Estimated GFR (MDRD) > 60 BUN/Creatinine Ratio 16.00 Glucose 135 H (74-105) mg/dL Calcium 9.2 (8.4-10.2) mg/dl Total Bilirubin 0.7 (0.2-1.0) mg/dL AST 33 (10-42) IU/L ALT 35 (10-60) IU/L Alkaline Phosphatase 57 (42-121) IU/L Troponin I < 0.02 (0.00-0.02) ng/ml C-Reactive Protein 0.5 (0.0-1.3) mg/dL Total Protein 7.0 (6.7-8.2) g/dl Albumin 4.2 (3.2-5.5) g/dl Globulin 2.8 Albumin/Globulin Ratio 1.50 Ethyl Alcohol mg/dL 10/16/18 Range/Units 11:00 WBC (5.0-10.0) 10^3/uL RBC (4.6-6.2) 10^6/uL Hgb (14.0-18.0) g/dL Hct (40.0-54.0) % MCV (80-100) fL MCH (27.0-34.0) pg MCHC (33.0-35.0) g/dL Plt Count (150-450) 10^3/uL Neut % (Auto) (42.2-75.2) % Lymph % (Auto) (20.5-50.1) % [place] % (Auto) (2-8) % Eos % (Auto) (1.0-3.0) % Baso % (Auto) (0.0-1.0) % Sodium (135-145) mmol/L Potassium (3.6-5.0) mmol/L Chloride (101-111) mmol/L Carbon Dioxide (21.0-31.0) mmol/L Anion Gap BUN (7-18) mg/dL Creatinine (0.6-1.3) mg/dL Est Cr Clr Drug Dosing mL/min Estimated GFR (MDRD) BUN/Creatinine Ratio Glucose (74-105) mg/dL Calcium (8.4-10.2) mg/dl Total Bilirubin (0.2-1.0) mg/dL AST (10-42) IU/L ALT (10-60) IU/L Alkaline Phosphatase (42-121) IU/L Troponin I (0.00-0.02) ng/ml C-Reactive Protein (0.0-1.3) mg/dL Total Protein (6.7-8.2) g/dl Albumin (3.2-5.5) g/dl Globulin Albumin/Globulin Ratio Ethyl Alcohol < 5 mg/dL Meds: Medications Discontinued Medications Generic Name Dose Route Start Last Admin Trade Name Wojciechq PRN Reason Stop Dose Admin Albuterol/Ipratropium Confirm 10/16/18 11:43 Duoneb 3.0-0.5 Mg/3 Ml Administered 10/16/18 11:44 Dose 3 ml .ROUTE .STK-MED ONE Diphenhydramine HCl 50 mg 10/16/18 10:39 10/16/18 10:48 Benadryl IVPUSH 10/16/18 10:40 50 mg ONETIME ONE Administration Diphenhydramine HCl Confirm 10/16/18 10:59 10/16/18 11:16 Benadryl Administered 10/16/18 11:00 Not Given Dose 50 mg .ROUTE .STK-MED ONE Epinephrine HCl 0.5 mg 10/16/18 10:46 10/16/18 10:49 Adrenalin IM 10/16/18 10:47 0.5 mg ONETIME ONE Administration Sodium Chloride 1,000 mls @ 999 mls/hr 10/16/18 10:39 10/16/18 10:48 Normal Saline IV 10/16/18 11:39 999 mls/hr .BOLUS ONE Administration Lorazepam 1 mg 10/16/18 10:40 10/16/18 10:48 Ativan IVPUSH 10/16/18 10:41 1 mg ONETIME ONE Administration Methylprednisolone Sodium Succinate 125 mg 10/16/18 10:39 10/16/18 10:48 Solu-Medrol IVPUSH 10/16/18 10:40 125 mg ONETIME ONE Administration Methylprednisolone Sodium Succinate Confirm 10/16/18 10:39 10/16/18 10:48 Solu-Medrol Administered 10/16/18 10:40 Not Given Dose 125 mg .ROUTE .STK-MED ONE Ondansetron HCl 4 mg 10/16/18 10:42 10/16/18 10:49 Zofran IV 10/16/18 10:43 4 mg ONETIME ONE Administration Sodium Chloride 10 ml 10/16/18 10:39 10/16/18 10:48 Saline Flush FLUSH 10 ml ASDIRECTED PRN Administration Keep Vein Open - Re-Assessments/Exams Free Text/Narrative Re-Assessment/Exam: Following medication treatments, patient respiration rate did improve. Patient states that he does feel "less shaky" with improvement in nausea. Patient continues to have generalized redness throughout his body. 10/16/18 11:55 Free Text/Narrative Re-Assessment/Exam: Patient denies any shortness of breath, shaking, N/V at this time. Patients redness is markedly improved. 10/16/18 12:19 Departure - Departure Time of Disposition: 12:19 Disposition: Home, Self-Care 01 Condition: Good Clinical Impression: Allergic reaction caused by a drug Qualifiers: Encounter type: initial encounter Qualified Code(s): T78.40XA - Allergy, unspecified, initial encounter - Discharge Information *PRESCRIPTION DRUG MONITORING PROGRAM REVIEWED*: No *COPY OF PRESCRIPTION DRUG MONITORING REPORT IN PATIENT ALEXA: No Instructions: Allergies, Adult, [id number]-ri-[id number] Forms: ED Department Discharge Additional Instructions: Discontinue Augmentin. In the future, avoid this medication as well as Amoxicillin as you are allergic. Notify primary care provider of allergy. Continue Prednisone pack as previously prescribed. Rx: Cefdinir Rx: Zyrtec May take Benadryl at bed time for next 3-4 days. *This medication will cause drowsiness. Do not drive under the influence of this medication. <Andre Costa - Last Filed: 10/17/18 13:06> Course - Re-Assessments/Exams Free Text/Narrative Re-Assessment/Exam: 10/17/18 13:06 I personally performed or re-performed the physical examination and medical decision making. I have verified all student documentation or findings, including history, physical exam and/or medical decision making.
[2018-10-16 11:35] LABS: ANION GAP 17.7; CHLORIDE,CL 108 mmol/L (101-111); SODIUM,NA 140 mmol/L (135-145)
[2018-10-16] MEDS ORDERED: Albuterol/Ipratropium 3.0-0.5 MG/3 ML Neb Soln ONE (11:43)
--- NOTE | 2018-10-16 11:50 | CR ---
Clinical history: 48-year-old male recent breast (" allergic reaction") Interpretation: Negative exam. No acute new cardiopulmonary abnormality identified in the interval since 28 August 2018 exam. Normal cardiac silhouette without alveolar edema or dependent effusion. No focal lobar pneumonia, atelectasis/collapse. No lung mass or hilar lymphadenopathy. No pneumothorax.
== END 2018-10-16 12:35 | disposition home or self-care (01) ==
LOC: DL.ED 10:32
DX: L27.1 Localized skin eruption due to drugs and medicaments taken internally (principal); R11.2 Nausea with vomiting, unspecified; R25.8 Other abnormal involuntary movements; R06.02 Shortness of breath; T36.0X5A Adverse effect of penicillins, initial encounter; J32.9 Chronic sinusitis, unspecified; F17.210 Nicotine dependence, cigarettes, uncomplicated; Z88.1 Allergy status to other antibiotic agents; Z88.8 Allergy status to other drugs, medicaments and biological substances; Z79.899 Other long term (current) drug therapy
CPT/HCPCS: 36415; 71045; 80053; 84484; 85025; 86140; 93005; 96374; 96375; 99285-25; G0480; J0171; J1200; J2060; J2405; J2930; J7030